=== PATIENT | female | born 1980 | race African-American/Black ===

== ENCOUNTER → 2017-03-19 | Outpatient (CLI) | payer BC ==
[~2017-03-19] VITALS: Ht 172.7 cm; Wt 93.0 kg
[~2017-03-19] MED LIST: IBUPROFEN800 MG PO; LEVOTHYROXINE100 MCG PO; LEVOTHYROXINE125 MCG PO; OMEPRAZOLE40 M1 PO; PRENATAL MULTI1 EAC3 PO; PRENATAL PLUS1 EAC3 PO; PROPRANOLOL HCL60 M1 PO; ZANTAC150 MG PO
== END | disposition home or self-care (01) ==
LOC: AMB 13:55
PROC: 0DB48ZX Excision of Esophagogastric Junction, Via Natural or Artificial Opening Endoscopic, Diagnostic (ICD-10-PCS; principal; 2017-03-19)
DX: R10.13 Epigastric pain (principal); K29.70 Gastritis, unspecified, without bleeding; Z87.891 Personal history of nicotine dependence; E66.9 Obesity, unspecified; Z68.33 Body mass index [BMI] 33.0-33.9, adult; E03.9 Hypothyroidism, unspecified; Z83.49 Family history of other endocrine, nutritional and metabolic diseases; Z80.8 Family history of malignant neoplasm of other organs or systems; Z82.49 Family history of ischemic heart disease and other diseases of the circulatory system; Z80.0 Family history of malignant neoplasm of digestive organs
CPT/HCPCS: 88305; J2250